=== PATIENT | male | born 1990 | race African-American/Black ===

== ENCOUNTER 2019-11-10 18:34 | Emergency (ER) | payer MEDICAID ==
[~2019-11-10] VITALS: Ht 170.2 cm; Wt 67.1 kg
[2019-11-10 19:30] VITALS: BP 119/64
--- NOTE | 2019-11-10 19:30 | NUR ---
ED Nurse Note: Pt walked into ED for c/o chest pain x1 month. Pt states pain has been intermittent, but was worse today. Pt also c/o headache. Pt states pain is dull in natue. Pt is aaox4, no sob or respiratory distress noted. Will continue to monitor.
--- NOTE | 2019-11-10 19:35 | NUR ---
ED Nurse Note: Pt not connected to manager cardiac cath at this time, ERMD and charge poster aware.
--- NOTE | 2019-11-10 19:47 | Emergency Room Report ---
History of Present Illness General Chief Complaint: Chest Pain Source: Patient Present Illness HPI 29-year-old male with no past medical history presents with intermittent chest pain for 1 month. He reports the pain was worse last night, rated 7 out of 10. Currently the pain is very mild. The pain is on the left side, nonradiating. Denies any abdominal pain or heartburn. Denies any nausea or vomiting. Denies any shortness of breath. No history of recent travel or surgery. No history of DVT or PE. No leg swelling or hemoptysis. No recent cough or cold. Patient does admit to strenuous exercise regularly. Has not taken any medications for pain. Denies any cigarette use or other drugs. Allergies: Coded Allergies: No Known Allergies (Unverified , 11/10/19) Patient History Past Medical History: see triage record Reviewed Nursing Documentation: PMH: Agreed; PSxH: Agreed Nursing Documentation-PMH Past Medical History: No Stated History Review of Systems All Other Systems: negative except mentioned in HPI Physical Exam Vital Signs Date Time Temp Pulse Resp B/P (MAP) Pulse Ox O2 Delivery O2 Flow Rate FiO2 11/10/19 19:12 98.1 78 16 119/64 (82) 98 Room Air Sp02 EP Interpretation: reviewed, normal General Appearance: normal inspection, well appearing, no apparent distress, alert, GCS 15, non-toxic ENT: EOM grossly intact, normal pharynx, normal voice, TMs + canals normal, uvula midline Neck: normal inspection, full range of motion, supple, thyroid normal, no meningismus, no bony tend Respiratory: chest non-tender, lungs clear, normal breath sounds, no respiratory distress Cardiovascular #1: normal peripheral pulses, regular rate, rhythm, no gallop, no murmur, no rub Gastrointestinal: normal inspection, normal bowel sounds, non tender, soft, no mass, no organomegaly, no guarding, no rebound Genitourinary: no CVA tenderness Musculoskeletal: normal inspection, normal range of motion, no calf tenderness , gait/station normal, non-tender Neurologic: alert, motor strength/tone normal, infrastructure analyst III-XII nml as tested, oriented x3, sensory intact, speech normal Psychiatric: judgement/insight normal, mood/affect normal Skin: no rash, normal color, warm/dry Lymphatic: no adenopathy Medical Decision Making PA Attestation Dr. Nunez is my supervising physician whom patient management and care has been discussed with. Diagnostic Impression: Primary Impression: Chest pain Qualified Codes: R07.9 - Chest pain, unspecified ER Course Pt. presents to the ED c/o intermittent chest pain for 1 month. Ddx considered but are not limited to ACS/[place], PE, pneumonia, costochondritis, anxiety, gastritis, GERD, pericarditis, myocarditis, endocarditis. Vital signs: are WNL, pt. is afebrile H&PE are most consistent with musculoskeletal pain however cannot rule out cardiac etiology ORDERS: CBC,CMP within normal limits Troponin normal EKG normal Chest x-ray normal ED INTERVENTIONS: Given 600 mg Ibuprofen DISCHARGE: At this time pt. is stable for d/c home. Will provide printed patient care instructions, and any necessary prescriptions. Given ibuprofen as this is likely musculoskeletal however patient advised to follow up outpatient in 1-2 days for further evaluation. Care plan and follow up instructions have been discussed with the patient prior to discharge. Strict return precautions given. Laboratory Tests Test 11/10/19 19:55 White Blood Count 9.4 K/UL (4.8-10.8) Red Blood Count 5.45 M/UL (4.70-6.10) Hemoglobin 14.0 G/DL (14.2-18.0) L Hematocrit 43.6 % (42.0-52.0) Mean Corpuscular Volume 80 FL (80-99) Mean Corpuscular Hemoglobin 25.7 PG (27.0-31.0) L Mean Corpuscular Hemoglobin Concent 32.1 G/DL (32.0-36.0) Red Cell Distribution Width 13.2 % (11.6-14.8) Platelet Count 188 K/UL (150-450) Mean Platelet Volume 9.8 FL (6.5-10.1) Neutrophils (%) (Auto) 67.3 % (45.0-75.0) Lymphocytes (%) (Auto) 21.8 % (20.0-45.0) Monocytes (%) (Auto) 7.3 % (1.0-10.0) Eosinophils (%) (Auto) 2.3 % (0.0-3.0) Basophils (%) (Auto) 1.3 % (0.0-2.0) Sodium Level 141 MMOL/L (136-145) Potassium Level 3.7 MMOL/L (3.5-5.1) Chloride Level 104 MMOL/L (98-107) Carbon Dioxide Level 28 MMOL/L (21-32) Anion Gap 9 mmol/L (5-15) Blood Urea Nitrogen 13 mg/dL (7-18) Creatinine 1.1 MG/DL (0.55-1.30) Estimate Glomerular Filtration Rate > 60 mL/min (>60) Glucose Level 83 MG/DL (74-106) Calcium Level 9.4 MG/DL (8.5-10.1) Total Bilirubin 0.3 MG/DL (0.2-1.0) Aspartate Amino Transferase (AST) 14 U/L (15-37) L Alanine Aminotransferase (ALT) 21 U/L (12-78) Alkaline Phosphatase 53 U/L (46-116) Troponin I 0.000 ng/mL (0.000-0.056) Total Protein 8.3 G/DL (6.4-8.2) H Albumin 4.3 G/DL (3.4-5.0) Globulin 4.0 g/dL Albumin/Globulin Ratio 1.1 (1.0-2.7) EKG Diagnostic Results EKG Time: 18:22 Rate: normal Rhythm: NSR ST Segments: no acute changes ASA given to the pt in ED: No PA Scribe Text This EKG was scribed by Marley Goff PA-C. Chest X-Ray Diagnostic Results Chest X-Ray Diagnostic Results : Chest X-Ray Ordered: Yes # of Views/Limited/Complete: 1 View Indication: Chest Pain EP Interpretation: Yes PA Xray: Interpretation reviewed, by supervising MD, and agrees with findings. Interpretation: no consolidation, no pneumothorax, no acute cardiopulmonary disease Impression: No acute disease PA Scribe Text This chest x-ray was scribed by Marley Goff PA-C. Last Vital Signs Date Time Temp Pulse Resp B/P (MAP) Pulse Ox O2 Delivery O2 Flow Rate FiO2 11/10/19 19:12 98.1 78 16 119/64 (82) 98 Room Air Disposition: HOME, SELF-CARE Condition: Stable Scripts Ibuprofen (Children's Advil) 100 Mg/5 Ml Oral.susp 600 MG PO Q6HR, #240 ML Prov: Marley Goff 11/10/19 Marley Goff Nov 10, 2019 19:47
[2019-11-10 20:40] LABS: BASOPHILS % (AUTO) 1.3 % (0.0-2.0); EOSINOPHILS % (AUTO) 2.3 % (0.0-3.0); HEMATOCRIT 43.6 % (42.0-52.0); LYMPHOCYTES % (AUTO) 21.8 % (20.0-45.0); MEAN CORPUSCULAR VOLUME 80 FL (80-99); MONOCYTES % (AUTO) 7.3 % (1.0-10.0); NEUTROPHILS % (AUTO) 67.3 % (45.0-75.0); PLATELET COUNT 188 K/UL (150-450); RED BLOOD COUNT 5.45 M/UL (4.70-6.10); RED CELL DISTRIBUTION WIDTH 13.2 % (11.6-14.8); WHITE BLOOD COUNT 9.4 K/UL (4.8-10.8)
[2019-11-10 21:05] LABS: ANION GAP 9 mmol/L (5-15); BLOOD UREA NITROGEN 13 mg/dL (7-18); CALCIUM 9.4 MG/DL (8.5-10.1); CARBON DIOXIDE 28 MMOL/L (21-32); CHLORIDE 104 MMOL/L (98-107); CREATININE 1.1 MG/DL (0.55-1.30); POTASSIUM 3.7 MMOL/L (3.5-5.1); SODIUM 141 MMOL/L (136-145)
[2019-11-10 21:13] LABS: ALANINE AMINOTRANSFERASE 21 U/L (12-78); ALBUMIN 4.3 G/DL (3.4-5.0); ALBUMIN/GLOBULIN RATIO 1.1 (1.0-2.7); ALKALINE PHOSPHATASE 53 U/L (46-116); ASPARTATE AMINO TRANSFERASE 14 U/L (15-37); BILIRUBIN,TOTAL 0.3 MG/DL (0.2-1.0)
[2019-11-10] MEDS ORDERED: IBUPROFEN600 MG ORAL (21:39)
[2019-11-10] MEDS ORDERED: CHILDREN'S100 MG/58 PO (21:48)
[2019-11-10 21:50] VITALS: BP 120/74
--- NOTE | 2019-11-10 21:50 | NUR ---
ER DISCHARGE NOTE: Patient is cleared to be discharged per ERMD, pt is aox4, on room air, with stable vital signs. pt was given dc and prescription instructions, pt was able to verbalize understanding, pt id band removed. pt is able to ambulate with steady gait. pt took all belongings.
--- NOTE | 2019-11-11 11:24 | Diagnostic Imaging Report ---
. Indication: Chest pain Technique: One view of the chest Comparison: none Findings: Lungs and pleural spaces are clear. Heart size is normal. Impression: No acute process
== END 2019-11-10 21:50 | disposition home or self-care (01) ==
LOC: EMR 19:31
DX: R07.9 Chest pain, unspecified (principal)
CPT/HCPCS: 36415; 71045; 80053; 84484; 85025; 93005; Z7502; 99283